=== PATIENT | female | born 1960 | race Caucasian/White ===

== ENCOUNTER 2019-10-22 08:11 | Emergency (ER) | payer OTHER ==
[~2019-10-22] VITALS: Ht 162.6 cm; Wt 68.9 kg
[2019-10-22] MEDS ORDERED: ENALAPRIL MALEA10 MG (08:40)
[2019-10-22] MEDS ORDERED: ATROVASTATIN PO (08:41)
== END 2019-10-22 20:28 | disposition home or self-care (01) ==
LOC: ER 08:11
DX: K52.89 Other specified noninfective gastroenteritis and colitis (principal)